=== PATIENT | female | born 1965 | race African-American/Black ===

== ENCOUNTER 2016-07-15 08:51 | Emergency (ER) | payer MEDICAID ==
[2016-07-15 08:59] VITALS: TEMP 99; BMI 31.4
--- NOTE | 2016-07-15 09:30 | EDPRACDOC ---
- General Information Chief Complaint: Abdominal Pain Stated Complaint: CONSTIPATION/ABD PAIN Time Seen by Provider: 07/15/16 09:21 Information Source: Patient Mode Of Arrival: Car Home Medications: Home Medications Amlodipine [Norvasc 10 mg Tablet] 10 mg PO HS 07/12/12 Trazodone HCl 100 mg PO HS 12/26/12 Almotriptan Malate [Axert] 6.25 mg PO .AT ONSET OF MART PRN 03/23/14 Diclofenac Sodium [Voltaren 1% Topical Gel] 1 blayne TOP QID PRN 03/23/14 Lisinopril/Hydrochlorothiazide [Lisinopril-Hctz 20-12.5 mg Tab] 1 tab PO DAILY 03/23/14 Meloxicam [Mobic] 7.5 mg PO DAILY PRN 03/23/14 Omeprazole 40 mg PO DAILY PRN 03/23/14 Atorvastatin Calcium [Lipitor] 40 mg PO DAILY 03/01/16 Dicyclomine HCl [Bentyl] 10 mg PO Q6H 03/01/16 Insulin Detemir [Levemir] 15 unit SQ QAM 03/01/16 Risperidone [Risperdal] 3 mg PO QHS 03/01/16 Gabapentin Enacarbil [Horizant] 600 mg PO DAILY 04/25/16 Diphenhydramine HCl [Benadryl Allergy] 25 mg PO Q4-6H PRN #30 tablet 06/13/16 Ranitidine [Zantac] 150 mg PO BID #14 tablet 06/13/16 Meclizine HCl 25 mg PO Q8H PRN 07/09/16 Metformin HCl 500 mg PO BID 07/09/16 Promethazine [Phenergan] 25 mg PO Q8H PRN 07/09/16 Insulin Regular, Human [Humulin R] See Protocol SQ AC #1 vial 07/11/16 Buspirone HCl 15 mg PO BID 07/15/16 HydrOXYzine HCl Syrup [Atarax] 12.5 ml PO Q8H PRN 07/15/16 Oxycodone HCl [Roxicodone] 5 mg PO Q4H PRN 07/15/16 Polyethylene Glycol 3350 [Miralax] 17 gm PO DAILY 07/15/16 Allergies/Adverse Reactions: Allergies Allergy/AdvReac Type Severity Reaction Status Date / Time aspirin Allergy Severe Hives* Verified 07/15/16 08:56 codeine [Codeine] Allergy Severe Hives* Verified 07/15/16 08:56 ibuprofen [From Motrin] Allergy Severe Hives* Verified 07/15/16 08:56 Penicillins Allergy Severe Anaphylaxis Verified 07/15/16 08:56 * - History of Present Illness Onset: Wednesday HPI: PT STATES DIFFUSE ABDOMINAL PAIN SINCE APPENDECTOMY ON WEDNESDAY, STATES DISCHARGED WEDNESDAY, HAS BEEN TAKING OXYCODONE FOR PAIN, PT STATES SHE HAS NOT BEEN ABLE TO HAVE BM SINCE WEDNESDAY, NO FEVER OR CHILLS, NO VOMITING. PT STATES PAIN IS ACROSS LOWER ABD AND RADIATES UP TO EPIGASTRIC, DESCRIBES ACHING AND CRAMPING. Pain Location: Reports: Diffuse Pain Context: Reports: Spontaneous Pain Severity: Moderate Pain Quality: Reports: Aching, Cramping Pain Radiation: Reports: No Radiation Adult Abdominal History: Reports: Abdominal Surgery Modifying Factors: improves with: Nothing Female Associated Signs & Symptoms: Reports: Nausea, Other (CONSTIPATED). Denies: Frequency, Vaginal Bleeding, Vomiting, Hematemesis, Anorexia, Diarrhea, Melena, Dysuria, Fever, Urgency, Hematuria, Chills, Vaginal Discharge Oral Intake: Normal Urinary Output: Normal ED Past Medical History - History Reviewed Yes Nurses notes reviewed and agree except as marked - Patient Medical History Neurological History: Denies: Cerebrovascular Accident, Seizures, Dementia Cardiac History: Reports: Hypertension, Hypercholesterolemia Respiratory History: Denies: Asthma, COPD GI/ History: Reports: Gastroesophageal Reflux, IBD Musculoskeletal History: Reports: Arthritis Psychological History: Reports: Depression, Anxiety. Denies: Substance Use Disorder Systemic History: Reports: Diabetes Additional Past Medical History: ATOPIC DERMATITIS Surgical History: Reports: Appendectomy, Cholecystectomy, Hysterectomy, Other ( Hand surgery L and R. Ears.) - Family Medical History Reports: Hypertension (Mother), Diabetes (Mother, Father), Stroke (PGM, aunt.), Cardiac Disorders (PGM: SD. Father: SD.) - Social Medical History Smoking Status: Never smoker Social History: Denies: Substance Use Disorder ETOH: None Substance Abuse: None EDM Review of Systems - Review of Systems Constitutional: negative: Chills, Fever Eyes: negative: Blurred Vision, Double Vision Ears: negative: Drainage Throat: negative: Pain Nose: negative: Congestion, Discharge Respiratory: negative: Cough, Shortness of Breath, Wheezing Cardiovascular: negative: Chest Pain, Palpitations Gastrointestinal: Constipation, Nausea, Pain. negative: Diarrhea, Vomiting Genitourinary: negative: Dysuria, Frequency Neurological: negative: Dizziness, Headache, Numbness, Weakness Musculoskeletal: No Symptoms Reported Integumentary: No Symptoms Reported - Physical Exam Constitutional: Alert (Awake), No apparent distress Oriented to: Time, Person, Place Last recorded Vital Signs: Last Vital Signs Temp 99.0 F 07/15/16 08:56 Pulse 88 07/15/16 11:35 Resp 20 07/15/16 11:35 BP 175/87 07/15/16 11:35 Pulse Ox 97 07/15/16 11:35 Oxygen Pulse Oxygen Saturation 97 O2 Device Room Air Oxygen Flow Rate Fraction of Inspired Oxygen ( FIO2) - HEENT Head: Normal ( normocephalic) Eye Exam: Normal (PERRL, EOMI, Sclera white) Oropharynx: Normal (Pharynx:Moist without exudate,Gums-no swelling) Tympanic Membrane: Normal ENT EAC: Normal TMJ: Normal Nose: No Symptoms Reported (septum midline) Neck: Normal (FROM, trachea at midline) - Respiratory/Cardiovascular Respiratory: Normal - CTA (BBS clear to auscultation without adventitious sounds ) Cardiovascular: Normal (RRR without murmur, gallop or rub) - GI Auscultation: Normal (NABS) Palpation: Normal (Soft,No rebound or guarding, non distended) Tenderness: Diffuse, Mild, Other (FRANCISCO DRAIN NOTED LOWER ABD, NO ERYTHEMA NOTED TO SITE, SURGICAL INCISIONS BANDAGED, BANDAGES CLEAN AND DRY). negative: Guarding, Rebound, Rigidity Landin's Sign: Negative - Musculoskeletal Back: Normal (Non-Tender) Extremities: Normal (Normal tone, Pulses 2+ No cyanosis or edema, FROM) - Integumentary Skin: Normal, Warm, Dry Lymphatics: Normal (no adenopathy) - Neurologic Memory Impaired: Normal Motor Function: Normal (Normal tone, Pulses 2+ No cyanosis or edema, FROM) Cranial Nerve: Normal (CN II-X11 intact sensation, strength 5/5) Cerebellar: Normal Mood Description: Normal Perception: Normal - Differential Diagnosis Bowel Obstruction, Constipation - Re-evaluation Re-evaluation 1 Re-evaluation Time: 12:06 (LARGE BM AFTER ENEMA, PAIN RESOLVED) - Results POC Capillary Glucose 268 MG/DL (70-99) H 07/15/16 10:45 Lab Results 07/15/16 10:45 POC Capillary Glucose 268 H - Diagnostic Imaging [facility] Image interpreted by: Radiologist 07/15/16 10:47 DG ABDOMEN ACUTE W/ 1V CHEST COMPARISON: CT 07/09/2016 FINDINGS: Surgical drain noted over the central and right abdomen. Formed stool present from the cecum to the descending colon at least. No evidence of ileus or obstruction. No pneumoperitoneum. Low lung volumes with minor bibasilar atelectasis. There is no edema, consolidation, effusion, or pneumothorax. Normal heart size and mediastinal contours. IMPRESSION: 1. Moderate to large stool volume correlating with history. 2. Negative for obstruction or ileus. 3. Hypoventilation and mild basilar atelectasis. Decision Time to Discharge: 12:07 - Departure Disposition: Home Condition: Stable Final Diagnosis: Constipation Qualifiers: Constipation type: drug induced constipation Qualified Code(s): K59.03 - Drug induced constipation Abdominal pain Qualifiers: Abdominal location: generalized Qualified Code(s): R10.84 - Generalized abdominal pain Instructions: Abdominal Pain (ED) Education/Counseling Given To: Patient Education/Counseling Given Regarding: Diagnosis, Treatment, Prognosis, Follow Up Referrals: Yvon Richards MD [Primary Care Provider] - One Week Additional Instructions: INCREASE WATER AND FIBER IN YOUR DIET, CONTINUE MIRALAX
--- NOTE | 2016-07-15 10:45 | DIRPT ---
CLINICAL DATA: Abdominal pain and constipation. Appendectomy 07/11/2016. EXAM: DG ABDOMEN ACUTE W/ 1V CHEST COMPARISON: CT 07/09/2016 FINDINGS: Surgical drain noted over the central and right abdomen. Formed stool present from the cecum to the descending colon at least. No evidence of ileus or obstruction. No pneumoperitoneum. Low lung volumes with minor bibasilar atelectasis. There is no edema, consolidation, effusion, or pneumothorax. Normal heart size and mediastinal contours. IMPRESSION: 1. Moderate to large stool volume correlating with history. 2. Negative for obstruction or ileus. 3. Hypoventilation and mild basilar atelectasis. Electronically Signed By: Kelvin Malagon M.D. On: 07/15/2016 10:42
[2016-07-15] MEDS ORDERED: BUBBLE GUM ENEMA 480 ML ENEMA PR ONE (11:00)
[2016-07-15 11:36] VITALS: BP 175/87; PULSE 88
== END 2016-07-15 12:18 | disposition home or self-care (01) ==
LOC: ED 08:51
DX: K59.03 Drug induced constipation (principal); I10 Essential (primary) hypertension; E78.00 Pure hypercholesterolemia, unspecified; K21.9 Gastro-esophageal reflux disease without esophagitis; E11.9 Type 2 diabetes mellitus without complications; Z79.4 Long term (current) use of insulin; Z79.891 Long term (current) use of opiate analgesic; Z79.899 Other long term (current) drug therapy; Z98.890 Other specified postprocedural states
CPT/HCPCS: 74022; 82962; 99283; J3490